=== PATIENT | female | born 1990 | race Asian ===

== ENCOUNTER 2017-07-08 16:47 | Emergency (ER) | payer SELFPAY ==
[2017-07-08 16:56] VITALS: BP 130/79
== END 2017-07-08 17:18 | disposition home or self-care (01) ==
LOC: ED 16:47
DX: S06.9X9A Unspecified intracranial injury with loss of consciousness of unspecified duration, initial encounter (principal); Z88.0 Allergy status to penicillin; W01.198A Fall on same level from slipping, tripping and stumbling with subsequent striking against other object, initial encounter; Y93.89 Activity, other specified; Y99.8 Other external cause status; Y92.89 Other specified places as the place of occurrence of the external cause